=== PATIENT | male | born 1960 | race Caucasian/White ===

== ENCOUNTER 2017-03-12 14:06 | Emergency (ER) | payer OTHER ==
[~2017-03-12] VITALS: Ht 193 cm; Wt 118.1 kg
[2017-03-12] MEDS ORDERED: TEST30SO TD (14:38)
[2017-03-12] MEDS ORDERED: LOSA50TA6 PO (14:38)
[2017-03-12] MEDS ORDERED: LEVO137T2 PO (14:38)
[2017-03-12 16:20] LABS: ASPARTATE AMINO TRANSFERASE 27 U/L (15-37); BLOOD UREA NITROGEN 21 mg/dL (7-18)
[2017-03-12 17:22] VITALS: BP 149/93
== END 2017-03-12 17:39 | disposition home or self-care (01) ==
LOC: ED 17:33
DX: G45.4 Transient global amnesia (principal); I10 Essential (primary) hypertension; E07.9 Disorder of thyroid, unspecified
CPT/HCPCS: 36415; 70450; 80053; 80307; 85025; 93005

== ENCOUNTER → 2017-05-19 | Outpatient (CLI) | payer OTHER ==
[~2017-05-19] MED LIST: LEVO137T2 PO; LOSA50TA6 PO; TEST30SO TD
== END | disposition home or self-care (01) ==
LOC: CVU 07:31
PROVIDERS: ATTEND Specialist
DX: I08.1 Rheumatic disorders of both mitral and tricuspid valves (principal); I10 Essential (primary) hypertension; G45.4 Transient global amnesia
CPT/HCPCS: 93306; 95819